=== PATIENT | female | born 1950 | race African-American/Black ===

== ENCOUNTER 2019-08-03 23:38 | Emergency (ER) | payer MEDICARE, MEDICAID ==
[~2019-08-03] VITALS: Ht 157.5 cm; Wt 63.0 kg
[2019-08-04 01:36] VITALS: BP 133/80
== END 2019-08-04 01:50 | disposition home or self-care (01) ==
LOC: ER 23:38
DX: J06.9 Acute upper respiratory infection, unspecified (principal); R09.81 Nasal congestion; E11.9 Type 2 diabetes mellitus without complications; I10 Essential (primary) hypertension; Z91.041 Radiographic dye allergy status; Z98.890 Other specified postprocedural states
CPT/HCPCS: 71045; 99283